=== PATIENT | male | born 1935 | race Caucasian/White ===

== ENCOUNTER → 2016-07-12 | Outpatient (CLI) | payer OTHER ==
[2016-07-12 07:26] LABS: Urine Bilirubin Negative (Negative); Urine Blood Negative /uL (Negative); Urine Color Yellow (Yellow); Urine Glucose Normal (Normal); Urine Ketone Negative (Negative); Urine Nitrite Negative (Negative); Urine RBC 1 /hpf (0 - 3); Urine Squamous Epithelial Cell FEW /hpf (<5); Urine Urobilinogen Normal (Negative)
[2016-07-12 07:27] LABS: Basophils # (auto) 0 uL; Basophils % (auto) 0.5 % (0.0-2.0); Eosinophils # (auto) 0.2 uL; Eosinophils % (auto) 3.8 % (0.0-7.0); Hematocrit 45.8 % (41.0-53.0); Hemoglobin 16.1 g/dL (13.5-17.5); Lymphocytes # (auto) 2.4 uL; Lymphocytes % (auto) 45.6 % (10.0-50.0); Mean Corpuscular Hemoglobin 34.4 pg (28.0-32.0); Mean Corpuscular Volume 98.2 fL (80.0-100.0); Mean Platelet Volume 7.2 fL (7.4-10.4); Monocytes # (auto) 0.5 uL; Neutrophils # (auto) 2.2 uL; Neutrophils % (auto) 41.1 % (37.0-80.0); Platelet Count (auto) 226 10^3/uL (140-450); Red Cell Distribution Width 13.1 % (11.6-16.0); White Blood Cell 5.3 10^3/uL (4.4-10.8)
[2016-07-12 08:15] LABS: Albumin 3.9 g/dL (3.4-5.0); Bilirubin, Total 1.3 mg/dL (0.2-1.0); Calcium 8.8 mg/dL (8.5-10.1); Potassium 4.4 mmol/L (3.5-5.1); Total Protein 7.4 g/dL (6.4-8.2)
== END | disposition home or self-care (01) ==
LOC: LAB 06:35
PROVIDERS: ATTEND Internal Medicine
DX: Z00.00 Encounter for general adult medical examination without abnormal findings (principal)
CPT/HCPCS: 36415; 80053; 80061; 81001; 84153; 84443; 85025

== ENCOUNTER → 2016-07-27 | Outpatient (CLI) | payer OTHER ==
[2016-07-27 10:49] LABS: Albumin 3.8 g/dL (3.4-5.0); Bilirubin, Direct 0.1 mg/dL (0-0.2); Bilirubin, Total 1.2 mg/dL (0.2-1.0); Total Protein 7.3 g/dL (6.4-8.2)
[2016-07-27 11:36] LABS: Hepatitis B Surface Antibody Negative
== END | disposition home or self-care (01) ==
LOC: LAB 10:01
PROVIDERS: ATTEND Internal Medicine
DX: E87.8 Other disorders of electrolyte and fluid balance, not elsewhere classified (principal); Z20.2 Contact with and (suspected) exposure to infections with a predominantly sexual mode of transmission
CPT/HCPCS: 36415; 80076; 86704; 86706; 86708; 86803; 87340

== ENCOUNTER → 2016-09-05 | Outpatient (CLI) | payer OTHER | END | disposition home or self-care (01) | LOC: LAB 09:33 | PROVIDERS: ATTEND Internal Medicine Gastroenterology | DX: R79.89 Other specified abnormal findings of blood chemistry (principal) | CPT/HCPCS: 82390; 83540; 83550; 86038 ==

== ENCOUNTER → 2017-09-26 | Outpatient (CLI) | payer OTHER ==
[2017-09-26 09:51] LABS: Albumin 3.8 g/dL (3.4-5.0); Bilirubin, Direct 0.1 mg/dL (0-0.2); Bilirubin, Total 0.8 mg/dL (0.2-1.0); Total Protein 7.5 g/dL (6.4-8.2)
== END | disposition home or self-care (01) ==
LOC: LAB 09:16
PROVIDERS: ATTEND Internal Medicine Gastroenterology
DX: R94.5 Abnormal results of liver function studies (principal); I12.9 Hypertensive chronic kidney disease with stage 1 through stage 4 chronic kidney disease, or unspecified chronic kidney disease; N18.2 Chronic kidney disease, stage 2 (mild); E03.9 Hypothyroidism, unspecified; E78.2 Mixed hyperlipidemia
CPT/HCPCS: 36415; 80076

== ENCOUNTER → 2018-09-11 | Outpatient (CLI) | payer OTHER ==
[2018-09-11 10:21] LABS: Albumin 3.7 g/dL (3.4-5.0); Bilirubin, Direct 0.1 mg/dL (0-0.2)
[2018-09-11 10:24] LABS: Bilirubin, Total 0.8 mg/dL (0.2-1.0); Total Protein 7.4 g/dL (6.4-8.2)
== END | disposition home or self-care (01) ==
LOC: LAB 09:46
PROVIDERS: ATTEND Internal Medicine Gastroenterology
DX: R79.89 Other specified abnormal findings of blood chemistry (principal)
CPT/HCPCS: 36415; 80076

== ENCOUNTER → 2018-10-16 | Outpatient (CLI) | payer OTHER ==
[2018-10-16 07:32] LABS: Basophils # (auto) 0 uL; Eosinophils # (auto) 0.2 uL; Eosinophils % (auto) 5.3 % (0.0-7.0); Hematocrit 43.6 % (41.0-53.0); Hemoglobin 15.4 g/dL (13.5-17.5); Lymphocytes % (auto) 43.1 % (10.0-50.0); Mean Corpuscular Hgb Conc. 35.2 g/dL (32.0-36.0); Mean Corpuscular Volume 99.3 fL (80.0-100.0); Monocytes # (auto) 0.5 uL; Monocytes % (auto) 9.9 % (0.0-12.0); Neutrophils # (auto) 1.9 uL; Neutrophils % (auto) 40.7 % (37.0-80.0); Platelet Count (auto) 193 10^3/uL (140-450); Red Blood Cells 4.39 10^6/uL (4.5-5.90); Red Cell Distribution Width 12.9 % (11.8-14.3); White Blood Cell 4.6 10^3/uL (4.4-10.8)
[2018-10-16 07:51] LABS: Urine Bacteria NONE SEEN /hpf (None Seen); Urine Blood Negative /uL (Negative); Urine Specific Gravity 1.023 (1.001-1.035); Urine WBC 12 /hpf (0 - 3)
[2018-10-16 08:36] LABS: Albumin 3.9 g/dL (3.4-5.0); Potassium 4.1 mmol/L (3.5-5.1)
[2018-10-16 08:43] LABS: Bilirubin, Total 1.3 mg/dL (0.2-1.0); Total Protein 7.5 g/dL (6.4-8.2)
== END | disposition home or self-care (01) ==
LOC: LAB 06:53
PROVIDERS: ATTEND Physician Assistant
DX: Z12.5 Encounter for screening for malignant neoplasm of prostate (principal); I12.9 Hypertensive chronic kidney disease with stage 1 through stage 4 chronic kidney disease, or unspecified chronic kidney disease; E11.22 Type 2 diabetes mellitus with diabetic chronic kidney disease; N18.2 Chronic kidney disease, stage 2 (mild); E03.9 Hypothyroidism, unspecified; E78.1 Pure hyperglyceridemia
CPT/HCPCS: 36415; 80053; 80061; 81001; 83036; 84153; 84443; 85025

== ENCOUNTER → 2019-03-17 | Outpatient (CLI) | payer OTHER ==
[2019-03-17 12:16] LABS: Albumin 3.7 g/dL (3.4-5.0); Bilirubin, Direct 0.2 mg/dL (0-0.2); Bilirubin, Total 0.7 mg/dL (0.2-1.0)
[2019-03-17 14:02] LABS: Total Protein 7.5 g/dL (6.4-8.2)
== END | disposition home or self-care (01) ==
LOC: LAB 11:18
PROVIDERS: ATTEND Internal Medicine Gastroenterology
DX: R79.89 Other specified abnormal findings of blood chemistry (principal)
CPT/HCPCS: 36415; 80076

== ENCOUNTER → 2019-11-26 | Outpatient (CLI) | payer OTHER ==
[2019-11-26 08:44] LABS: White Blood Cell 3.2 10^3/uL (4.4-10.8)
[2019-11-26 08:47] LABS: Hematocrit 35.4 % (41.0-53.0); Hemoglobin 12.5 g/dL (13.5-17.5); Mean Corpuscular Hemoglobin 36.2 pg (28.0-32.0); Mean Corpuscular Hgb Conc. 35.4 g/dL (32.0-36.0); Mean Corpuscular Volume 102.2 fL (80.0-100.0); Platelet Count (auto) 53 10^3/uL (140-450); Red Blood Cells 3.46 10^6/uL (4.5-5.90); Red Cell Distribution Width 15.2 % (11.8-14.3)
[2019-11-26 08:57] LABS: Band Neutrophils % (manual) 0; Basophils % (manual) 0 (0.0-2.0); Blast Cells 0; Metamyelocytes % 0; Myelocytes % 0; Promyelocytes % 0; Reactive Lymphocytes 0
[2019-11-26 09:05] LABS: Albumin 3.6 g/dL (3.4-5.0); Potassium 4.3 mmol/L (3.5-5.1)
[2019-11-26 09:12] LABS: Bilirubin, Total 1.5 mg/dL (0.2-1.0); Total Protein 7.9 g/dL (6.4-8.2)
[2019-11-26 09:21] LABS: Eosinophils % (manual) 3 (0-7); Lymphocytes % (manual) 47 (10.0-50.0); Monocytes % (manual) 20 (0-12)
== END | disposition home or self-care (01) ==
LOC: LAB 08:20
PROVIDERS: ATTEND Internal Medicine Gastroenterology
DX: R94.5 Abnormal results of liver function studies (principal)
CPT/HCPCS: 36415; 80053; 80061; 82728; 84443; 85007; 85027

== ENCOUNTER 2019-12-01 08:49 | Inpatient (IN) | payer OTHER ==
[~2019-12-01] VITALS: Ht 167.6 cm; Wt 78.7 kg
[2019-12-01 09:54] LABS: Hemoglobin 11.8 g/dL (13.5-17.5); Red Blood Cells 3.38 10^6/uL (4.5-5.90)
[2019-12-01 09:56] LABS: Hematocrit 34.7 % (41.0-53.0); Mean Corpuscular Volume 102.9 fL (80.0-100.0); Platelet Count (auto) 48 10^3/uL (140-450); Red Cell Distribution Width 15.3 % (11.8-14.3); White Blood Cell 4.2 10^3/uL (4.4-10.8)
[2019-12-01 10:03] LABS: Band Neutrophils % (manual) 0; Basophils % (manual) 0 (0.0-2.0); Blast Cells 0; Eosinophils % (manual) 0 (0-7); Myelocytes % 0; Promyelocytes % 0; Reactive Lymphocytes 0
[2019-12-01 10:06] LABS: Albumin 3.4 g/dL (3.4-5.0); Anion Gap 8 (5-15); Blood Urea Nitrogen 16 mg/dL (7-18); Calcium 8.9 mg/dL (8.5-10.1); Carbon Dioxide 23 mmol/L (21-32); Chloride 101 mmol/L (98-107); Glucose 221 mg/dL (74-106); Magnesium 2.2 mg/dL (1.6-2.6); Potassium 4.1 mmol/L (3.5-5.1); Sodium 132 mmol/L (136-145)
[2019-12-01 10:11] LABS: Lactic Acid w/Reflex 2.4 mmol/L (0.4-2.0)
[2019-12-01 10:16] LABS: Alanine Aminotransferase 32 U/L (16-61); Alkaline Phosphatase 80 U/L (45-117); Aspartate Aminotransferase 31 U/L (15-37); BUN/Creatinine Ratio 13.3; Bilirubin, Total 1.8 mg/dL (0.2-1.0); GFR African American 74 mL/min; GFR Non-African American 61 mL/min; Lactate Dehydrogenase 196 U/L (87-241)
[2019-12-01 10:51] LABS: Lymphocytes % (manual) 49 (10.0-50.0); Metamyelocytes % 1; Monocytes % (manual) 17 (0-12)
[2019-12-01] MEDS ORDERED: DexAMETHasone SOD PHOS 10MG/1ML VIAL INJ IV ONE (11:30)
[2019-12-01] MEDS ORDERED: DOXYCYCLINE 100MG/250ML 250 ML IV ONE (11:30)
[2019-12-01] MEDS ORDERED: SODIUM CHLORIDE 0.9% 1,000 ML IV ONE (11:30)
[2019-12-01] MEDS ORDERED: NITROGLYCERIN 0.4 MG SL TAB SL PRN (12:45)
[2019-12-01] MEDS ORDERED: MORPHINE SULF INJ 2 MG/ML SYRINGE 1ML IV PRN ×2 (12:45→14:00)
[2019-12-01] MEDS ORDERED: CIPR500T4 PO (12:58)
[2019-12-01] MEDS ORDERED: AZITHROMYCIN 500MG/ 250ML 250 ML IV ONE (13:30)
[2019-12-01] MEDS ORDERED: ACETAMINOPHEN 500 MG TAB PO PRN (13:30)
[2019-12-01 14:00] VITALS: BP 123/71
[2019-12-01] MEDS ORDERED: ALUM & MAG HYDROX-SIMETH LIQ(MAALOX) 30 ML PO PRN (14:00)
[2019-12-01] MEDS ORDERED: DOCUSATE SOD 100 MG CAP PO PRN (14:00)
[2019-12-01] MEDS ORDERED: DEXTROSE (50%) 50ML SYRG IV PRN (14:00)
[2019-12-01] MEDS ORDERED: LISINOPRIL 20 MG TAB PO ONE (14:00)
[2019-12-01] MEDS ORDERED: ACETAMINOPHEN 325 MG TAB PO PRN (14:00)
[2019-12-01] MEDS ORDERED: HYDROcodone-ACET 5/325MG TAB PO PRN (14:00)
[2019-12-01] MEDS ORDERED: ALBUTEROL SULF HFA 90MCG INH 200DOSE IN SCH (14:00)
[2019-12-01] MEDS ORDERED: PANTOPRAZOLE 40 MG/10 ML VIAL INJ IV ONE (14:00)
[2019-12-01] MEDS ORDERED: LORazepam 0.5 MG TAB PO PRN (14:00)
[2019-12-01] MEDS ORDERED: hydrALAZINE HCL 25 MG TAB PO PRN (14:00)
[2019-12-01 16:00] VITALS: BP 123/71
[2019-12-01] MEDS: SODIUM CHLORIDE 0.9% 1,000 ML IV SCH (16:41)
[2019-12-01] MEDS ORDERED: METF-370 PO (16:57)
[2019-12-01] MEDS ORDERED: BOSW1TAB3 PO (16:57)
[2019-12-01] MEDS ORDERED: PLANTAB3 PO (16:57)
[2019-12-01] MEDS ORDERED: FLAX12003 PO (16:57)
[2019-12-01] MEDS ORDERED: LISI-646 PO (16:57)
[2019-12-01] MEDS ORDERED: OMEG1CAP68 PO (16:58)
[2019-12-01] MEDS ORDERED: [UNRECOGNIZED DRUG - CODE] PO (16:59)
[2019-12-01] MEDS: InsuLIN REG 1unit/0.01ml Soln (100units/ml) SC SCH ×2 (17:00→22:08)
[2019-12-01] MEDS: ACCU-CHEK COMFORT CURVE STRIP VI SCH ×2 (17:00→22:19)
[2019-12-01] MEDS ORDERED: INFLUENZA QUAD 2020-2021 0.5 ML SYRG IM ONE (19:00)
[2019-12-01] MEDS ORDERED: PNEUMOCOCCAL VACC POLYS 25 MCG/0.5 ML VIAL IM ONE (19:00)
[2019-12-01 20:00] VITALS: BP 102/67
[2019-12-01 22:00] VITALS: BP 102/67
[2019-12-01] MEDS ORDERED: BUDESONIDE (INHALATION) 180 MCG IH IN SCH (22:00)
[2019-12-01] MEDS: METOPROLOL TARTRATE 25 MG TAB PO SCH (22:07)
[2019-12-01] MEDS: ATORVASTATIN 20 MG TAB PO SCH (22:07)
[2019-12-02 01:00] VITALS: BP 121/71
[2019-12-02 05:00] VITALS: BP 111/63
[2019-12-02] MEDS: ACCU-CHEK COMFORT CURVE STRIP VI SCH ×4 (07:00→21:48)
[2019-12-02] MEDS: InsuLIN REG 1unit/0.01ml Soln (100units/ml) SC SCH ×4 (07:02→21:48)
[2019-12-02 07:18] LABS: White Blood Cell 4.9 10^3/uL (4.4-10.8)
[2019-12-02 07:21] LABS: Hematocrit 30.7 % (41.0-53.0); Hemoglobin 10.6 g/dL (13.5-17.5); Mean Corpuscular Hemoglobin 35.3 pg (28.0-32.0); Mean Corpuscular Hgb Conc. 34.6 g/dL (32.0-36.0); Mean Corpuscular Volume 102.2 fL (80.0-100.0); Platelet Count (auto) 50 10^3/uL (140-450); Red Cell Distribution Width 15.3 % (11.8-14.3)
[2019-12-02 07:29] LABS: Band Neutrophils % (manual) 0; Basophils % (manual) 0 (0.0-2.0); Blast Cells 0; Metamyelocytes % 0; Myelocytes % 0; Promyelocytes % 0; Reactive Lymphocytes 0
[2019-12-02 07:34] LABS: Albumin 2.8 g/dL (3.4-5.0); Calcium 8.6 mg/dL (8.5-10.1); Potassium 4.1 mmol/L (3.5-5.1)
[2019-12-02 07:37] LABS: BUN/Creatinine Ratio 23.2; Total Protein 6.7 g/dL (6.4-8.2)
[2019-12-02 08:29] LABS: Eosinophils % (manual) 1 (0-7); Lymphocytes % (manual) 62 (10.0-50.0); Monocytes % (manual) 13 (0-12)
[2019-12-02 09:00] VITALS: BP 116/64
[2019-12-02] MEDS: PANTOPRAZOLE 40 MG/10 ML VIAL INJ IV SCH (09:41)
[2019-12-02] MEDS: cefTRIAXone 1GM/50ML D5W 50 ML IV SCH (09:41)
[2019-12-02] MEDS: AZITHROMYCIN 500MG/ 250ML 250 ML IV SCH (09:42)
[2019-12-02] MEDS: METOPROLOL TARTRATE 25 MG TAB PO SCH ×2 (09:43→22:06)
[2019-12-02] MEDS: LISINOPRIL 20 MG TAB PO SCH (09:44)
[2019-12-02] MEDS: SODIUM CHLORIDE 0.9% 1,000 ML IV SCH (09:49)
[2019-12-02] MEDS ORDERED: ZINC SULFATE 220mg CAP or TAB PO SCH (10:00)
[2019-12-02] MEDS ORDERED: ASPirin 81 mg TAB PO SCH (10:00)
[2019-12-02] MEDS ORDERED: DexAMETHasone SOD PHOS 10MG/1ML VIAL INJ IV SCH (10:00)
[2019-12-02] MEDS ORDERED: CHOLECALCIFEROL (VITD3) 2,000 UNIT CAP PO SCH (10:00)
[2019-12-02] MEDS ORDERED: ENOXAPARIN SOD 40 MG/0.4 ML SYRINGE SC SCH (10:00)
[2019-12-02] MEDS ORDERED: ASCORBIC ACID 1,000 MG TAB PO SCH (10:00)
[2019-12-02] MEDS ORDERED: IOHEXOL 300 MG/ML 100ML BOTTLE IJ ONE (12:16)
[2019-12-02 13:00] VITALS: BP 125/69
[2019-12-02 15:19] LABS: % Iron Saturation 32.5 % (20-55)
[2019-12-02 15:20] LABS: INR 1.08 (0.9-1.15); Partial Thromboplastin Time 24.7 sec (23.0-31.2)
[2019-12-02 15:25] LABS: Free T4 (Free Thyroxine) 0.59 ng/dL (0.89-1.76)
[2019-12-02 15:26] LABS: Folate (Folic Acid) 8.89 ng/mL (5.38-24)
[2019-12-02 16:45] VITALS: BP 127/76
[2019-12-02 22:00] VITALS: BP 157/77
[2019-12-02] MEDS: ATORVASTATIN 20 MG TAB PO SCH (22:05)
[2019-12-03 05:00] VITALS: BP 144/75
[2019-12-03 06:22] LABS: Platelet Count (auto) 51 10^3/uL (140-450); Red Blood Cells 3.24 10^6/uL (4.5-5.90); White Blood Cell 5.7 10^3/uL (4.4-10.8)
[2019-12-03 06:25] LABS: Hematocrit 32.9 % (41.0-53.0); Hemoglobin 11.3 g/dL (13.5-17.5); Mean Corpuscular Hemoglobin 34.8 pg (28.0-32.0); Mean Corpuscular Hgb Conc. 34.3 g/dL (32.0-36.0); Mean Corpuscular Volume 101.5 fL (80.0-100.0); Red Cell Distribution Width 15.3 % (11.8-14.3)
[2019-12-03 06:28] LABS: Basophils % (manual) 0 (0.0-2.0); Blast Cells 0; Eosinophils % (manual) 0 (0-7); Metamyelocytes % 0; Myelocytes % 0; Promyelocytes % 0; Reactive Lymphocytes 0
[2019-12-03 06:37] LABS: Albumin 2.9 g/dL (3.4-5.0); Calcium 8.6 mg/dL (8.5-10.1); Potassium 4.1 mmol/L (3.5-5.1)
[2019-12-03 06:41] LABS: BUN/Creatinine Ratio 20.6; Bilirubin, Total 1.1 mg/dL (0.2-1.0); Total Protein 6.7 g/dL (6.4-8.2)
[2019-12-03] MEDS: ACCU-CHEK COMFORT CURVE STRIP VI SCH ×4 (06:43→22:17)
[2019-12-03] MEDS: InsuLIN REG 1unit/0.01ml Soln (100units/ml) SC SCH ×4 (06:48→22:17)
[2019-12-03 08:30] LABS: Band Neutrophils % (manual) 4; Lymphocytes % (manual) 41 (10.0-50.0); Monocytes % (manual) 23 (0-12)
[2019-12-03 09:00] VITALS: BP 134/79
[2019-12-03] MEDS: cefTRIAXone 1GM/50ML D5W 50 ML IV SCH (09:42)
[2019-12-03] MEDS: PANTOPRAZOLE 40 MG/10 ML VIAL INJ IV SCH (09:43)
[2019-12-03] MEDS: LISINOPRIL 20 MG TAB PO SCH (09:44)
[2019-12-03] MEDS: METOPROLOL TARTRATE 25 MG TAB PO SCH ×2 (09:45→22:00)
[2019-12-03] MEDS: AZITHROMYCIN 500MG/ 250ML 250 ML IV SCH (10:00)
[2019-12-03 13:00] VITALS: BP 115/64
[2019-12-03 17:00] VITALS: BP 113/70
[2019-12-03] MEDS: MORPHINE SULF INJ 2 MG/ML SYRINGE 1ML IV PRN ×2 (19:38→20:55)
[2019-12-03] MEDS: NITROGLYCERIN 0.4 MG SL TAB SL PRN ×2 (20:55→21:28)
[2019-12-03 22:00] VITALS: BP 152/84
[2019-12-03] MEDS: ATORVASTATIN 20 MG TAB PO SCH (22:26)
[2019-12-04 00:10] VITALS: BP 123/63
[2019-12-04 05:00] VITALS: BP 127/75
[2019-12-04 06:14] LABS: Hematocrit 35.8 % (41.0-53.0); White Blood Cell 8.2 10^3/uL (4.4-10.8)
[2019-12-04 06:16] LABS: Hemoglobin 12.4 g/dL (13.5-17.5); Mean Corpuscular Hemoglobin 35.2 pg (28.0-32.0); Mean Corpuscular Hgb Conc. 34.7 g/dL (32.0-36.0); Mean Corpuscular Volume 101.4 fL (80.0-100.0); Platelet Count (auto) 58 10^3/uL (140-450); Red Blood Cells 3.53 10^6/uL (4.5-5.90); Red Cell Distribution Width 15.3 % (11.8-14.3)
[2019-12-04 06:24] LABS: Band Neutrophils % (manual) 0; Basophils % (manual) 0 (0.0-2.0); Blast Cells 0; Eosinophils % (manual) 0 (0-7); Metamyelocytes % 0; Myelocytes % 0; Promyelocytes % 0; Reactive Lymphocytes 0
[2019-12-04 06:33] LABS: Calcium 8.8 mg/dL (8.5-10.1); Magnesium 2.3 mg/dL (1.6-2.6); Potassium 4.2 mmol/L (3.5-5.1)
[2019-12-04 06:35] LABS: BUN/Creatinine Ratio 16.5
[2019-12-04] MEDS: ACCU-CHEK COMFORT CURVE STRIP VI SCH ×4 (06:46→22:37)
[2019-12-04] MEDS: InsuLIN REG 1unit/0.01ml Soln (100units/ml) SC SCH ×4 (06:47→22:37)
[2019-12-04 07:33] LABS: Lymphocytes % (manual) 46 (10.0-50.0); Monocytes % (manual) 10 (0-12)
[2019-12-04 09:00] VITALS: BP 110/62
[2019-12-04] MEDS: cefTRIAXone 1GM/50ML D5W 50 ML IV SCH (09:29)
[2019-12-04] MEDS: METOPROLOL TARTRATE 25 MG TAB PO SCH ×3 (09:30→22:36)
[2019-12-04] MEDS: LISINOPRIL 20 MG TAB PO SCH (09:30)
[2019-12-04] MEDS: PANTOPRAZOLE 40 MG/10 ML VIAL INJ IV SCH (09:31)
[2019-12-04] MEDS: AZITHROMYCIN 500MG/ 250ML 250 ML IV SCH (10:00)
[2019-12-04 13:00] VITALS: BP 121/85
[2019-12-04] MEDS ORDERED: KETOROLAC TROMETH 30 MG/ML 1ML VIAL IV ONE (14:30)
[2019-12-04] MEDS ORDERED: OMNIPAQUE ORAL SOLN 500ml 12mg/ml PO ONE (14:45)
[2019-12-04] MEDS ORDERED: CYANOCOBALAMIN (B-12) 1000 MCG/1 ML VIAL IM ONE (14:45)
[2019-12-04] MEDS ORDERED: IOHEXOL 300 MG/ML 100ML BOTTLE IJ ONE ×2 (14:45→16:48)
[2019-12-04 17:24] VITALS: BP 106/61
[2019-12-04 20:53] LABS: Urine Bacteria NONE SEEN /hpf (None Seen); Urine Blood Negative /uL (Negative); Urine WBC 1 /hpf (0 - 3)
[2019-12-04 20:55] LABS: Urine Specific Gravity > 1.050 (1.001-1.035)
[2019-12-04 22:00] VITALS: BP 111/68
[2019-12-04] MEDS: ATORVASTATIN 20 MG TAB PO SCH (22:36)
[2019-12-05] MEDS ORDERED: ASPirin 81 mg TAB PO ONE (04:15)
[2019-12-05] MEDS ORDERED: ATORVASTATIN 20 MG TAB PO ONE (04:15)
[2019-12-05 05:00] VITALS: BP 115/61
[2019-12-05 05:44] LABS: Platelet Count (auto) 45 10^3/uL (140-450)
[2019-12-05 05:46] LABS: Hematocrit 33.3 % (41.0-53.0); Hemoglobin 11.8 g/dL (13.5-17.5); Mean Corpuscular Hemoglobin 35.3 pg (28.0-32.0); Mean Corpuscular Hgb Conc. 35.3 g/dL (32.0-36.0); Red Blood Cells 3.33 10^6/uL (4.5-5.90); White Blood Cell 9.9 10^3/uL (4.4-10.8)
[2019-12-05 05:59] LABS: Band Neutrophils % (manual) 0; Basophils % (manual) 0 (0.0-2.0); Blast Cells 0; Eosinophils % (manual) 0 (0-7); Metamyelocytes % 0; Promyelocytes % 0; Reactive Lymphocytes 0
[2019-12-05 06:03] LABS: Albumin 2.5 g/dL (3.4-5.0); Calcium 7.8 mg/dL (8.5-10.1); Potassium 4.4 mmol/L (3.5-5.1)
[2019-12-05 06:13] LABS: BUN/Creatinine Ratio 19.5; Bilirubin, Total 1.5 mg/dL (0.2-1.0); CRP High Sensitivity 15.5 mg/dL (< 0.3); Total Protein 6.8 g/dL (6.4-8.2)
[2019-12-05] MEDS: ACCU-CHEK COMFORT CURVE STRIP VI SCH ×4 (06:21→22:00)
[2019-12-05] MEDS: LEVOTHYROXINE SODIUM 88 MCG TAB PO SCH (06:21)
[2019-12-05] MEDS: InsuLIN REG 1unit/0.01ml Soln (100units/ml) SC SCH ×4 (06:23→23:17)
[2019-12-05 06:47] LABS: Lymphocytes % (manual) 30 (10.0-50.0); Monocytes % (manual) 30 (0-12); Myelocytes % 1
[2019-12-05 08:31] LABS: INR 1.21 (0.9-1.15); Partial Thromboplastin Time 28.2 sec (23.0-31.2)
[2019-12-05 09:00] VITALS: BP 100/59
[2019-12-05] MEDS: METOPROLOL TARTRATE 25 MG TAB PO SCH ×2 (10:00→22:00)
[2019-12-05] MEDS: LISINOPRIL 20 MG TAB PO SCH (10:00)
[2019-12-05] MEDS: AZITHROMYCIN 500MG/ 250ML 250 ML IV SCH (10:19)
[2019-12-05] MEDS: cefTRIAXone 1GM/50ML D5W 50 ML IV SCH (10:20)
[2019-12-05] MEDS: PANTOPRAZOLE 40 MG/10 ML VIAL INJ IV SCH (10:20)
[2019-12-05] MEDS: ONDANSETRON HCL 4 MG/2 ML VIAL IV PRN (10:30)
[2019-12-05 13:00] VITALS: BP 102/52
[2019-12-05] MEDS ORDERED: HEPARIN SODIUM (PORCINE) 5000 UNITS/ML 1ML VIAL ONE (15:14)
[2019-12-05] MEDS ORDERED: VERAPAMIL 2.5MG/ML INJ 2ML VIAL IV ONE (15:14)
[2019-12-05] MEDS ORDERED: ANGIOMAX 250 MG VIAL IV ONE (15:14)
[2019-12-05] MEDS ORDERED: MIDAZOLAM HCL 1MG/1ML-2 ML VIAL ONE (15:15)
[2019-12-05] MEDS ORDERED: fentaNYL CITRATE 100 MCG/2 ML VL ONE (15:15)
[2019-12-05] MEDS ORDERED: LIDOCAINE 2%HCL (LOCAL ANESTH.) INJ 20ML MDV ONE (15:15)
[2019-12-05] MEDS ORDERED: SODIUM CHL 0.9% 0 ML ONE (15:15)
[2019-12-05] MEDS: SODIUM CHLORIDE 0.9% 1,000 ML IV SCH (17:30)
[2019-12-05] MEDS: NITROGLYCERIN 0.4 MG SL TAB SL PRN ×3 (20:15→22:10)
[2019-12-05] MEDS: MORPHINE SULF INJ 2 MG/ML SYRINGE 1ML IV PRN (20:52)
[2019-12-05 22:00] VITALS: BP 115/49
[2019-12-05] MEDS ORDERED: TEMAZEPAM 15 MG CAP PO ONE (22:00)
[2019-12-05] MEDS: ATORVASTATIN 20 MG TAB PO SCH (23:04)
[2019-12-06] VITALS (30 sets, daily range): BP systolic 75–145; BP diastolic 40–70
[2019-12-06] MEDS: SODIUM CHLORIDE 0.9% 1,000 ML IV SCH (05:22)
[2019-12-06] MEDS: InsuLIN REG 1unit/0.01ml Soln (100units/ml) SC SCH ×4 (06:20→22:13)
[2019-12-06] MEDS: LEVOTHYROXINE SODIUM 88 MCG TAB PO SCH (06:21)
[2019-12-06] MEDS: ACCU-CHEK COMFORT CURVE STRIP VI SCH ×4 (07:00→22:08)
[2019-12-06 07:11] LABS: Hemoglobin 11.7 g/dL (13.5-17.5)
[2019-12-06 07:13] LABS: Hematocrit 32.9 % (41.0-53.0); Mean Corpuscular Hemoglobin 35.6 pg (28.0-32.0); Mean Corpuscular Hgb Conc. 35.5 g/dL (32.0-36.0); Platelet Count (auto) 43 10^3/uL (140-450); Red Blood Cells 3.29 10^6/uL (4.5-5.90); Red Cell Distribution Width 16.3 % (11.8-14.3); White Blood Cell 12.2 10^3/uL (4.4-10.8)
[2019-12-06 07:18] LABS: Basophils % (manual) 0 (0.0-2.0); Blast Cells 0; Eosinophils % (manual) 0 (0-7); Promyelocytes % 0
[2019-12-06 07:32] LABS: Albumin 2.2 g/dL (3.4-5.0); Calcium 7.7 mg/dL (8.5-10.1); Potassium 5.5 mmol/L (3.5-5.1)
[2019-12-06 07:38] LABS: BUN/Creatinine Ratio 19.8; Total Protein 6.5 g/dL (6.4-8.2)
[2019-12-06 07:41] LABS: Band Neutrophils % (manual) 4; Lymphocytes % (manual) 44 (10.0-50.0); Metamyelocytes % 1; Monocytes % (manual) 6 (0-12); Myelocytes % 1; Reactive Lymphocytes 1
[2019-12-06] MEDS ORDERED: guaiFENesin-CODEINE Liq 5 ML UD PO PRN (09:30)
[2019-12-06] MEDS: LISINOPRIL 20 MG TAB PO SCH (10:00)
[2019-12-06] MEDS: METOPROLOL TARTRATE 25 MG TAB PO SCH ×2 (10:00→22:00)
[2019-12-06] MEDS: cefTRIAXone 1GM/50ML D5W 50 ML IV SCH (10:14)
[2019-12-06] MEDS: PANTOPRAZOLE 40 MG/10 ML VIAL INJ IV SCH (10:14)
[2019-12-06] MEDS: ASPirin 81 mg TAB PO SCH (10:14)
[2019-12-06] MEDS: AZITHROMYCIN 500MG/ 250ML 250 ML IV SCH (10:14)
[2019-12-06] MEDS ORDERED: FUROSEMIDE 20 MG/2 ML VIAL IV ONE (15:15)
[2019-12-06] MEDS ORDERED: SODIUM CHLORIDE 0.9% 1,000 ML IV ONE (15:45)
[2019-12-06] MEDS: NOREPINEPHRINE 8 MG/250ML KIT 250 ML IV SCH (17:25)
[2019-12-06] MEDS: SODIUM BICARB 50ML SYR 75 ML in SOD CHL 0.45% 1,000 ML IV SCH (18:00)
[2019-12-06 21:41] LABS: Hemoglobin 10.3 g/dL (13.5-17.5); Red Blood Cells 2.95 10^6/uL (4.5-5.90); Red Cell Distribution Width 16.5 % (11.8-14.3)
[2019-12-06 21:43] LABS: Hematocrit 29.8 % (41.0-53.0); Mean Corpuscular Hemoglobin 34.9 pg (28.0-32.0); Mean Corpuscular Hgb Conc. 34.6 g/dL (32.0-36.0); Mean Corpuscular Volume 100.9 fL (80.0-100.0); Platelet Count (auto) 67 10^3/uL (140-450); White Blood Cell 14.4 10^3/uL (4.4-10.8)
[2019-12-06 21:49] LABS: Basophils % (manual) 0 (0.0-2.0); Blast Cells 0; Metamyelocytes % 0; Myelocytes % 0; Promyelocytes % 0
[2019-12-06 22:03] LABS: Calcium 7.1 mg/dL (8.5-10.1); Potassium 4.5 mmol/L (3.5-5.1)
[2019-12-06] MEDS: ATORVASTATIN 20 MG TAB PO SCH (22:08)
[2019-12-06 22:44] LABS: Band Neutrophils % (manual) 5; Lymphocytes % (manual) 25 (10.0-50.0); Monocytes % (manual) 38 (0-12)
[2019-12-06 22:45] LABS: Eosinophils % (manual) 1 (0-7); Reactive Lymphocytes 2
[2019-12-07] VITALS (85 sets, daily range): BP systolic 71–164; BP diastolic 27–79
[2019-12-07 03:45] LABS: Hemoglobin 11.7 g/dL (13.5-17.5); Mean Corpuscular Hemoglobin 34.4 pg (28.0-32.0); Mean Corpuscular Hgb Conc. 34.3 g/dL (32.0-36.0); Mean Corpuscular Volume 100.1 fL (80.0-100.0); Platelet Count (auto) 66 10^3/uL (140-450); Red Blood Cells 3.41 10^6/uL (4.5-5.90)
[2019-12-07 03:47] LABS: Hematocrit 34.1 % (41.0-53.0); White Blood Cell 13.7 10^3/uL (4.4-10.8)
[2019-12-07 03:49] LABS: Basophils % (manual) 0 (0.0-2.0); Blast Cells 0; Eosinophils % (manual) 0 (0-7); Promyelocytes % 0; Reactive Lymphocytes 0
[2019-12-07 04:01] LABS: BUN/Creatinine Ratio 19.8; Calcium 7.2 mg/dL (8.5-10.1)
[2019-12-07 04:11] LABS: Band Neutrophils % (manual) 2; Lymphocytes % (manual) 19 (10.0-50.0); Metamyelocytes % 3; Monocytes % (manual) 30 (0-12); Myelocytes % 1
[2019-12-07] MEDS: ACCU-CHEK COMFORT CURVE STRIP VI SCH ×4 (06:50→23:30)
[2019-12-07] MEDS: InsuLIN REG 1unit/0.01ml Soln (100units/ml) SC SCH ×4 (06:51→23:31)
[2019-12-07] MEDS: SODIUM BICARB 50ML SYR 75 ML in SOD CHL 0.45% 1,000 ML IV SCH (06:55)
[2019-12-07] MEDS: LEVOTHYROXINE SODIUM 88 MCG TAB PO SCH (06:56)
[2019-12-07] MEDS: METOPROLOL TARTRATE 25 MG TAB PO SCH ×2 (10:00→23:29)
[2019-12-07] MEDS: cefTRIAXone 1GM/50ML D5W 50 ML IV SCH (10:08)
[2019-12-07] MEDS: PANTOPRAZOLE 40 MG/10 ML VIAL INJ IV SCH (10:08)
[2019-12-07] MEDS: ASPirin 81 mg TAB PO SCH (10:09)
[2019-12-07] MEDS: AZITHROMYCIN 500MG/ 250ML 250 ML IV SCH (11:18)
[2019-12-07] MEDS ORDERED: SODIUM BICARB 50ML SYR 75 ML in SOD CHL 0.45% 1,000 ML IV SCH (12:30)
[2019-12-07] MEDS: NOREPINEPHRINE 8 MG/250ML KIT 250 ML IV SCH (15:55)
[2019-12-07 17:01] LABS: Hemoglobin 10.6 g/dL (13.5-17.5)
[2019-12-07 17:03] LABS: Hematocrit 30.6 % (41.0-53.0); Mean Corpuscular Hemoglobin 34.6 pg (28.0-32.0); Mean Corpuscular Hgb Conc. 34.6 g/dL (32.0-36.0); Mean Corpuscular Volume 99.9 fL (80.0-100.0); Platelet Count (auto) 70 10^3/uL (140-450); Red Blood Cells 3.07 10^6/uL (4.5-5.90); Red Cell Distribution Width 16.5 % (11.8-14.3); White Blood Cell 16.5 10^3/uL (4.4-10.8)
[2019-12-07 17:19] LABS: BUN/Creatinine Ratio 26.9; Band Neutrophils % (manual) 0; Basophils % (manual) 0 (0.0-2.0); Blast Cells 0; Myelocytes % 0; Potassium 3.8 mmol/L (3.5-5.1); Promyelocytes % 0; Reactive Lymphocytes 0
[2019-12-07 18:00] LABS: Eosinophils % (manual) 1 (0-7); Lymphocytes % (manual) 25 (10.0-50.0); Metamyelocytes % 1; Monocytes % (manual) 33 (0-12)
[2019-12-07] MEDS: ATORVASTATIN 20 MG TAB PO SCH (23:28)
[2019-12-08] VITALS (34 sets, daily range): BP systolic 94–123; BP diastolic 41–70
[2019-12-08] MEDS: ONDANSETRON HCL 4 MG/2 ML VIAL IV PRN (03:02)
[2019-12-08 04:20] LABS: Hemoglobin 10.9 g/dL (13.5-17.5)
[2019-12-08 04:23] LABS: Hematocrit 31.2 % (41.0-53.0); Mean Corpuscular Hemoglobin 34.9 pg (28.0-32.0); Mean Corpuscular Hgb Conc. 34.8 g/dL (32.0-36.0); Mean Corpuscular Volume 100.2 fL (80.0-100.0); Platelet Count (auto) 51 10^3/uL (140-450); Red Blood Cells 3.11 10^6/uL (4.5-5.90); Red Cell Distribution Width 16.9 % (11.8-14.3); White Blood Cell 13.5 10^3/uL (4.4-10.8)
[2019-12-08 04:27] LABS: Basophils % (manual) 0 (0.0-2.0); Blast Cells 0; Promyelocytes % 0; Reactive Lymphocytes 0
[2019-12-08 04:37] LABS: Potassium 4.2 mmol/L (3.5-5.1)
[2019-12-08 04:38] LABS: BUN/Creatinine Ratio 35.8
[2019-12-08 05:18] LABS: INR 1.18 (0.9-1.15); Partial Thromboplastin Time 25.6 sec (23.0-31.2)
[2019-12-08] MEDS: LEVOTHYROXINE SODIUM 88 MCG TAB PO SCH (06:11)
[2019-12-08 06:20] LABS: Band Neutrophils % (manual) 1; Eosinophils % (manual) 1 (0-7); Lymphocytes % (manual) 28 (10.0-50.0); Metamyelocytes % 2; Monocytes % (manual) 24 (0-12); Myelocytes % 1
[2019-12-08] MEDS: ACCU-CHEK COMFORT CURVE STRIP VI SCH (07:00)
[2019-12-08] MEDS: InsuLIN REG 1unit/0.01ml Soln (100units/ml) SC SCH (07:00)
[2019-12-08] MEDS ORDERED: LIDOCAINE 2%HCL (LOCAL ANESTH.) INJ 20ML MDV ONE (08:15)
[2019-12-08] MEDS ORDERED: NITROGLYCERIN 5MG/ML 10ML VIAL IV ONE (08:22)
[2019-12-08] MEDS ORDERED: ANGIOMAX 250 MG VIAL IV ONE ×2 (09:08→10:18)
[2019-12-08] MEDS ORDERED: fentaNYL CITRATE 100 MCG/2 ML VL ONE ×2 (09:08→10:01)
[2019-12-08] MEDS ORDERED: diphenhdrAMINE HCL 50 MG/1 ML VL ONE (09:08)
[2019-12-08] MEDS ORDERED: SODIUM CHL 0.9% 50 ML ONE ×2 (09:09→10:18)
[2019-12-08] MEDS ORDERED: MIDAZOLAM HCL 1MG/1ML-2 ML VIAL ONE (09:09)
[2019-12-08] MEDS ORDERED: DOPamine 1600MCG/ML D5W 250 ML IV SCH (09:15)
[2019-12-08] MEDS ORDERED: IODIXANOL 320MG/ML 100ML BTL IV ONE ×3 (09:24→11:29)
[2019-12-08] MEDS: METOPROLOL TARTRATE 25 MG TAB PO SCH (10:00)
[2019-12-08] MEDS ORDERED: DOPamine 1600MCG/ML D5W 250 ML IV ONE (11:59)
[2019-12-08] MEDS ORDERED: PHENYLEPHRINE HCL 10 MG/ML VL ONE (12:16)
[2019-12-08] MEDS ORDERED: PHENYLEPHRINE IV 250 ML IV ONE (12:16)
[2019-12-08] MEDS ORDERED: NOREPINEPHRINE 8 MG/250ML KIT 250 ML IV ONE (12:30)
[2019-12-08] MEDS ORDERED: EPINEPHrine HCL 1 MG/10 ML SYRG ONE ×3 (12:31→12:38)
[2019-12-08] MEDS ORDERED: IOHEXOL 350 MG/ML 100ML IJ ONE (12:36)
[2019-12-08] MEDS ORDERED: SODIUM BICARBONATE 8.4% INJ 50ML SYRINGE ONE (12:37)
[2019-12-08] MEDS ORDERED: ATROPINE SULF 1 MG/10ml SYR IV ONE ×2 (14:02→14:05)
[2019-12-08] MEDS ORDERED: EPINEPHrine HCL 1 MG/10 ML SYRG IV ONE ×2 (14:02→14:05)
[2019-12-08] MEDS ORDERED: AMIODARONE HCL 200 MG TAB PO ONE (14:05)
[2019-12-08] MEDS ORDERED: SODIUM BICARBONATE 8.4% INJ 50ML SYRINGE IV ONE (14:05)
== END 2019-12-08 13:06 | disposition expired | DRG 853 ==
LOC: ER 08:49 → TELE 08:50 → EAST 13:45 → WEST WING 12-02 00:40 → TELE-WESTW 12-02 00:41 → ICU WEST 12-06 17:10 → CATH ICU 12-08 14:33 → ICU WEST 12-08 14:33
PROVIDERS: ADMIT Hospitalist; ATTEND Internal Medicine
PROC: 4A023N7 Measurement of Cardiac Sampling and Pressure, Left Heart, Percutaneous Approach (ICD-10-PCS; 2019-12-05)
PROC: B2151ZZ Fluoroscopy of Left Heart using Low Osmolar Contrast (ICD-10-PCS; 2019-12-05)
PROC: B2111ZZ Fluoroscopy of Multiple Coronary Arteries using Low Osmolar Contrast (ICD-10-PCS; 2019-12-05)
PROC: 30233R1 Transfusion of Nonautologous Platelets into Peripheral Vein, Percutaneous Approach (ICD-10-PCS; principal; 2019-12-06)
PROC: 02HV33Z Insertion of Infusion Device into Superior Vena Cava, Percutaneous Approach (ICD-10-PCS; 2019-12-07)
PROC: 02HA3RJ Insertion of Short-term External Heart Assist System into Heart, Intraoperative, Percutaneous Approach (ICD-10-PCS; 2019-12-08)
PROC: 5A0221D Assistance with Cardiac Output using Impeller Pump, Continuous (ICD-10-PCS; 2019-12-08)
PROC: 027337Z Dilation of Coronary Artery, Four or More Arteries with Four or More Drug-eluting Intraluminal Devices, Percutaneous Approach (ICD-10-PCS; 2019-12-08)
PROC: B240ZZ3 Ultrasonography of Single Coronary Artery, Intravascular (ICD-10-PCS; 2019-12-08)
PROC: X2C0361 Extirpation of Matter from Coronary Artery, One Artery using Orbital Atherectomy Technology, Percutaneous Approach, New Technology Group 1 (ICD-10-PCS; 2019-12-08)
PROC: 5A12012 Performance of Cardiac Output, Single, Manual (ICD-10-PCS; 2019-12-08)
PROC: 30233N1 Transfusion of Nonautologous Red Blood Cells into Peripheral Vein, Percutaneous Approach (ICD-10-PCS; 2019-12-08)
PROC: 0W9D30Z Drainage of Pericardial Cavity with Drainage Device, Percutaneous Approach (ICD-10-PCS; 2019-12-08)
DX: A41.9 Sepsis, unspecified organism (principal); J18.0 Bronchopneumonia, unspecified organism; N17.0 Acute kidney failure with tubular necrosis; J96.91 Respiratory failure, unspecified with hypoxia; E87.1 Hypo-osmolality and hyponatremia; J98.11 Atelectasis; D61.818 Other pancytopenia; I24.9 Acute ischemic heart disease, unspecified; E87.2 Acidosis; I31.3 Pericardial effusion (noninflammatory); J90 Pleural effusion, not elsewhere classified; I50.30 Unspecified diastolic (congestive) heart failure; I13.0 Hypertensive heart and chronic kidney disease with heart failure and stage 1 through stage 4 chronic kidney disease, or unspecified chronic kidney disease; R57.1 Hypovolemic shock; D69.6 Thrombocytopenia, unspecified; E11.9 Type 2 diabetes mellitus without complications; I10 Essential (primary) hypertension; E66.9 Obesity, unspecified; E78.5 Hyperlipidemia, unspecified; D53.9 Nutritional anemia, unspecified; E03.9 Hypothyroidism, unspecified; N18.2 Chronic kidney disease, stage 2 (mild); I95.9 Hypotension, unspecified; I25.10 Atherosclerotic heart disease of native coronary artery without angina pectoris; E11.22 Type 2 diabetes mellitus with diabetic chronic kidney disease; E86.1 Hypovolemia; E87.5 Hyperkalemia; I70.0 Atherosclerosis of aorta; K59.00 Constipation, unspecified; N14.1 Nephropathy induced by other drugs, medicaments and biological substances; J20.8 Acute bronchitis due to other specified organisms; T50.8X5A Adverse effect of diagnostic agents, initial encounter; Z79.84 Long term (current) use of oral hypoglycemic drugs; N18.30 Chronic kidney disease, stage 3 unspecified; Z03.818 Encounter for observation for suspected exposure to other biological agents ruled out
CPT/HCPCS: 36415; 36569; 36600; 71045; 71260; 74177; 80048; 80053; 80061; 81001; 82607; 82728; 82746; 82805; 82962; 83036; 83540; 83550; 83605; 83615; 83735; 83880; 83930; 83935; 84300; 84439; 84443; 84484; 85007; 85027; 85045; 85379; 85610; 85730; 86141; 86710; 86850; 86880; 86900; 86901; 86920; 87040; 87081; 87086; 87426; 93005; 93306; 96361; 96365; 96375; 99152; 99153; 99291; C1751; C1874; C1887; C9113; G0378; J0696; J1100; J1815; J2250; J2405; J3490; Q9967